=== PATIENT | female | born 1950 | race Caucasian/White ===

== ENCOUNTER 2020-03-23 04:03 | Outpatient (RCR) | payer OTHER, SELFPAY ==
[2020-03-23] MEDS: Normal Saline Flush 10 ML SYR IVP (08:29)
[2020-03-23 08:52] LABS: Abs Immature Grans 0.02 10^3/uL (0.0-0.06); Absolute Basophil Count 0.02 10^3/uL (0.0-0.2); Absolute Eosinophil Count 0.18 10^3/uL (0.0-0.7); Absolute Lymphocyte Count 0.66 10^3/uL (1.2-3.4); Absolute Monocyte Count 0.25 10^3/uL (0.1-0.8); Absolute Neutrophil Count 3.25 10^3/uL (1.2-6.7); Basophils % 0.5; Eosinophils % 4.1; HCT 32.6 % (36.0-46.0); HGB 10.3 g/dL (11.2-15.7); Immature Grans % 0.5; Lymphocytes % 15.1; MCH 26.8 pg (27.0-33.0); MCHC 31.6 % (32.0-36.0); MCV 84.9 fL (80-95); MPV 9.9 fL (8.0-11.0); Monocytes % 5.7; Neutrophils % 74.1; Nucleated RBC 0 %; Platelet Count 251 10^3/uL (130-400); RBC 3.84 10^6/uL (3.93-5.22); RDW 14.1 % (11.7-14.6); RDW-SD 43.8 fL; WBC 4.38 10^3/uL (4.4-10.8)
[2020-03-23 09:16] LABS: Iron 30 ug/dL (50-170); Total Iron Binding Capacity 264 ug/dL (250-450); Transferrin Sat 11 % (15-50)
[2020-03-23 09:32] LABS: ALT 47 U/L (14-59); AST 48 U/L (15-37); Albumin 3.1 g/dL (3.4-5.0); Alkaline Phosphatase 382 U/L (46-116); Anion Gap 8.3 mmol/L (3-11); BUN 9 mg/dL (7-18); Bilirubin, Total 0.3 mg/dL (0.2-1.0); CO2 26.7 mmol/L (21.0-32.0); CREATININE 0.75 mg/dL (0.55-1.02); Calcium 8.9 mg/dL (8.5-10.1); Chloride 105 mmol/L (98-107); Ferritin 85 ng/mL (8-252); Folate 11.5 ng/mL (8.6-20.0); Glucose 98 mg/dL (74-106); Potassium 3.8 mmol/L (3.5-5.1); Sodium 140 mmol/L (136-145); Total Protein 6.9 g/dL (6.4-8.2); Vitamin B12 410 pg/mL (193-986)
== END 2020-03-24 23:59 | disposition home or self-care (01) ==
LOC: INF 04:03
PROVIDERS: PCP Family Medicine; Visit Provider Internal Medicine Hematology & Oncology
DX: C22.1 Intrahepatic bile duct carcinoma (principal); C64.9 Malignant neoplasm of unspecified kidney, except renal pelvis; Z45.2 Encounter for adjustment and management of vascular access device
CPT/HCPCS: 36591; 80053; 82607; 82728; 82746; 83540; 83550; 85025; 86301

== ENCOUNTER 2020-04-20 05:20 | Outpatient (RCR) | payer MEDICARE, OTHER, SELFPAY ==
[2020-03-30] MEDS: Normal Saline Flush 10 ML SYR IVP (08:46)
[2020-03-30 08:50] LABS: Abs Immature Grans 0.01 10^3/uL (0.0-0.06); Absolute Basophil Count 0.02 10^3/uL (0.0-0.2); Absolute Eosinophil Count 0.09 10^3/uL (0.0-0.7); Absolute Lymphocyte Count 0.92 10^3/uL (1.2-3.4); Absolute Monocyte Count 0.37 10^3/uL (0.1-0.8); Absolute Neutrophil Count 3.51 10^3/uL (1.2-6.7); Basophils % 0.4; Eosinophils % 1.8; HCT 30.2 % (36.0-46.0); HGB 9.6 g/dL (11.2-15.7); Immature Grans % 0.2; Lymphocytes % 18.7; MCH 26.4 pg (27.0-33.0); MCHC 31.8 % (32.0-36.0); MCV 83.2 fL (80-95); MPV 10.1 fL (8.0-11.0); Monocytes % 7.5; Neutrophils % 71.4; Nucleated RBC 0 %; Platelet Count 195 10^3/uL (130-400); RBC 3.63 10^6/uL (3.93-5.22); RDW 14.4 % (11.7-14.6); RDW-SD 43.8 fL; WBC 4.92 10^3/uL (4.4-10.8)
[2020-03-30 09:10] LABS: ALT 76 U/L (14-59); AST 64 U/L (15-37); Albumin 2.9 g/dL (3.4-5.0); Alkaline Phosphatase 395 U/L (46-116); Anion Gap 10.4 mmol/L (3-11); BUN 8 mg/dL (7-18); Bilirubin, Total 0.5 mg/dL (0.2-1.0); CO2 24.6 mmol/L (21.0-32.0); CREATININE 0.75 mg/dL (0.55-1.02); Calcium 8.8 mg/dL (8.5-10.1); Chloride 105 mmol/L (98-107); Glucose 91 mg/dL (74-106); Sodium 140 mmol/L (136-145); Total Protein 6.9 g/dL (6.4-8.2)
[2020-04-03 13:19] LABS: CA 19-9 23118 U/mL (<35)
[2020-04-06] MEDS: Normal Saline Flush 10 ML SYR IVP (08:20)
[2020-04-06 08:22] LABS: Abs Immature Grans 0.02 10^3/uL (0.0-0.06); Absolute Basophil Count 0.02 10^3/uL (0.0-0.2); Absolute Eosinophil Count 0.05 10^3/uL (0.0-0.7); Absolute Monocyte Count 0.38 10^3/uL (0.1-0.8); Absolute Neutrophil Count 2.84 10^3/uL (1.2-6.7); Basophils % 0.5; Eosinophils % 1.3; HGB 10.1 g/dL (11.2-15.7); Immature Grans % 0.5; Lymphocytes % 15.3; MCH 26.6 pg (27.0-33.0); MCHC 32.6 % (32.0-36.0); MCV 81.8 fL (80-95); MPV 9.6 fL (8.0-11.0); Monocytes % 9.7; Neutrophils % 72.7; Nucleated RBC 0 %; Platelet Count 154 10^3/uL (130-400); RBC 3.79 10^6/uL (3.93-5.22); RDW 13.8 % (11.7-14.6); RDW-SD 41.1 fL; WBC 3.91 10^3/uL (4.4-10.8)
[2020-04-06 09:04] LABS: ALT 70 U/L (14-59); AST 60 U/L (15-37); Albumin 3.1 g/dL (3.4-5.0); Alkaline Phosphatase 393 U/L (46-116); BUN 12 mg/dL (7-18); Bilirubin, Total 0.4 mg/dL (0.2-1.0); Calcium 8.9 mg/dL (8.5-10.1); Chloride 99 mmol/L (98-107); Glucose 100 mg/dL (74-106); Potassium 4.6 mmol/L (3.5-5.1); Sodium 134 mmol/L (136-145); Total Protein 7.3 g/dL (6.4-8.2); Vitamin B12 525 pg/mL (193-986)
[2020-04-09 06:06] LABS: Vitamin D 25 Total 14.7 ng/ml (30-100)
[2020-04-10 12:09] LABS: CA 19-9 41894 U/mL (<35)
[2020-04-20] MEDS: Normal Saline Flush 10 ML SYR IVP (08:23)
[2020-04-20 08:33] LABS: Abs Immature Grans 0.03 10^3/uL (0.0-0.06); Absolute Basophil Count 0.01 10^3/uL (0.0-0.2); Absolute Eosinophil Count 0.02 10^3/uL (0.0-0.7); Absolute Lymphocyte Count 0.67 10^3/uL (1.2-3.4); Absolute Monocyte Count 0.56 10^3/uL (0.1-0.8); Absolute Neutrophil Count 2.26 10^3/uL (1.2-6.7); Basophils % 0.3; Eosinophils % 0.6; HCT 26.4 % (36.0-46.0); HGB 8.7 g/dL (11.2-15.7); Immature Grans % 0.8; Lymphocytes % 18.9; MCH 26.4 pg (27.0-33.0); MCV 80.2 fL (80-95); MPV 9.1 fL (8.0-11.0); Monocytes % 15.8; Neutrophils % 63.6; Nucleated RBC 0 %; Platelet Count 366 10^3/uL (130-400); RBC 3.29 10^6/uL (3.93-5.22); RDW 14.4 % (11.7-14.6); RDW-SD 41.6 fL; WBC 3.55 10^3/uL (4.4-10.8)
[2020-04-20 08:46] LABS: ALT 24 U/L (14-59); AST 23 U/L (15-37); Albumin 2.6 g/dL (3.4-5.0); Alkaline Phosphatase 297 U/L (46-116); Anion Gap 9.1 mmol/L (3-11); BUN 11 mg/dL (7-18); Bilirubin, Total 0.4 mg/dL (0.2-1.0); CO2 22.9 mmol/L (21.0-32.0); CREATININE 0.99 mg/dL (0.55-1.02); Calcium 8.5 mg/dL (8.5-10.1); Chloride 100 mmol/L (98-107); Estimated GFR 55.95 (mL/min/1.73m2); Glucose 95 mg/dL (74-106); Potassium 4.3 mmol/L (3.5-5.1); Sodium 132 mmol/L (136-145)
[2020-04-20 09:01] LABS: Anisocytosis 1+; Diff Comment Agrees w/ Instrument; Hypochromasia 1+; Microcytosis 1+; Poikilocytes 1+
[2020-04-20 16:14] LABS: Reticulocyte 1.1 % (0.5-2.4)
[2020-04-23 12:02] LABS: CA 19-9 971 U/mL (<35)
== END 2020-04-23 23:59 | disposition home or self-care (01) ==
LOC: INF 05:20
PROVIDERS: PCP Family Medicine; Visit Provider Internal Medicine Hematology & Oncology
DX: C22.1 Intrahepatic bile duct carcinoma (principal); Z45.2 Encounter for adjustment and management of vascular access device; D64.9 Anemia, unspecified
CPT/HCPCS: 36591; 80053; 82306; 82607; 85025; 85045; 86301

== ENCOUNTER 2020-05-21 08:00 | Outpatient (RCR) | payer MEDICARE, OTHER, SELFPAY ==
[2020-04-27] MEDS: Normal Saline Flush 10 ML SYR IVP (09:30)
[2020-04-27 09:37] LABS: Absolute Basophil Count 0.01 10^3/uL (0.0-0.2); Absolute Lymphocyte Count 0.54 10^3/uL (1.2-3.4); Absolute Monocyte Count 0.41 10^3/uL (0.1-0.8); Absolute Neutrophil Count 2.97 10^3/uL (1.2-6.7); Basophils % 0.2; HGB 8.4 g/dL (11.2-15.7); Immature Grans % 2.5; Lymphocytes % 13.4; MCH 26.1 pg (27.0-33.0); MCHC 32.3 % (32.0-36.0); MCV 80.7 fL (80-95); MPV 8.8 fL (8.0-11.0); Monocytes % 10.2; Neutrophils % 73.7; Nucleated RBC 0 %; Platelet Count 239 10^3/uL (130-400); RBC 3.22 10^6/uL (3.93-5.22); RDW 14.5 % (11.7-14.6); RDW-SD 42.5 fL; WBC 4.03 10^3/uL (4.4-10.8)
[2020-04-27 09:44] LABS: Reticulocyte 0.1 % (0.5-2.4)
[2020-04-27 09:59] LABS: ALT 30 U/L (14-59); AST 32 U/L (15-37); Albumin 2.7 g/dL (3.4-5.0); Alkaline Phosphatase 264 U/L (46-116); Anion Gap 8.9 mmol/L (3-11); BUN 16 mg/dL (7-18); Bilirubin, Total 0.4 mg/dL (0.2-1.0); CO2 21.1 mmol/L (21.0-32.0); CREATININE 0.94 mg/dL (0.55-1.02); Calcium 8.4 mg/dL (8.5-10.1); Chloride 100 mmol/L (98-107); Glucose 90 mg/dL (74-106); Potassium 4.1 mmol/L (3.5-5.1); Sodium 130 mmol/L (136-145); Total Protein 6.7 g/dL (6.4-8.2)
[2020-05-11 08:22] LABS: Abs Immature Grans 0.11 10^3/uL (0.0-0.06); Absolute Basophil Count 0.01 10^3/uL (0.0-0.2); Absolute Eosinophil Count 0.04 10^3/uL (0.0-0.7); Absolute Lymphocyte Count 0.81 10^3/uL (1.2-3.4); Absolute Monocyte Count 0.62 10^3/uL (0.1-0.8); Basophils % 0.3; HCT 27.3 % (36.0-46.0); HGB 8.9 g/dL (11.2-15.7); Immature Grans % 2.8; Lymphocytes % 20.5; MCH 26.2 pg (27.0-33.0); MCHC 32.6 % (32.0-36.0); MCV 80.3 fL (80-95); MPV 9.3 fL (8.0-11.0); Monocytes % 15.7; Neutrophils % 59.7; Nucleated RBC 0 %; Platelet Count 310 10^3/uL (130-400); RDW 16.1 % (11.7-14.6); RDW-SD 44.9 fL; WBC 3.96 10^3/uL (4.4-10.8)
[2020-05-11 08:24] LABS: Absolute Neutrophil Count 2.36 10^3/uL (1.2-6.7)
[2020-05-11] MEDS: Normal Saline Flush 10 ML SYR IVP (08:26)
[2020-05-11 08:35] LABS: ALT 23 U/L (14-59); AST 22 U/L (15-37); Albumin 2.8 g/dL (3.4-5.0); Alkaline Phosphatase 248 U/L (46-116); Anion Gap 11.5 mmol/L (3-11); BUN 15 mg/dL (7-18); Bilirubin, Total 0.4 mg/dL (0.2-1.0); CO2 20.5 mmol/L (21.0-32.0); CREATININE 0.98 mg/dL (0.55-1.02); Calcium 8.5 mg/dL (8.5-10.1); Chloride 103 mmol/L (98-107); Estimated GFR 56.61 (mL/min/1.73m2); Glucose 91 mg/dL (74-106); Potassium 3.9 mmol/L (3.5-5.1); Sodium 135 mmol/L (136-145); Total Protein 6.7 g/dL (6.4-8.2)
[2020-05-11 09:32] LABS: Magnesium 1.6 mg/dL (1.8-2.4)
[2020-05-14 15:27] LABS: CA 19-9 60194 U/mL (<35)
[2020-05-21] MEDS: Normal Saline Flush 10 ML SYR IVP (08:16)
[2020-05-21 08:29] LABS: Absolute Basophil Count 0.01 10^3/uL (0.0-0.2); Absolute Eosinophil Count 0.02 10^3/uL (0.0-0.7); Absolute Lymphocyte Count 0.82 10^3/uL (1.2-3.4); Absolute Monocyte Count 0.45 10^3/uL (0.1-0.8); Absolute Neutrophil Count 5.28 10^3/uL (1.2-6.7); Basophils % 0.1; Eosinophils % 0.3; HCT 24.7 % (36.0-46.0); HGB 8.2 g/dL (11.2-15.7); Immature Grans % 2.9; Lymphocytes % 12.1; MCH 26.6 pg (27.0-33.0); MCHC 33.2 % (32.0-36.0); MCV 80.2 fL (80-95); MPV 9.3 fL (8.0-11.0); Monocytes % 6.6; Nucleated RBC 0 %; Platelet Count 118 10^3/uL (130-400); RBC 3.08 10^6/uL (3.93-5.22); RDW 16.8 % (11.7-14.6); RDW-SD 46.8 fL; WBC 6.78 10^3/uL (4.4-10.8)
[2020-05-21 08:46] LABS: ALT 23 U/L (14-59); AST 19 U/L (15-37); Albumin 2.7 g/dL (3.4-5.0); Alkaline Phosphatase 178 U/L (46-116); Anion Gap 10.1 mmol/L (3-11); BUN 15 mg/dL (7-18); Bilirubin, Total 0.4 mg/dL (0.2-1.0); CO2 21.9 mmol/L (21.0-32.0); CREATININE 0.97 mg/dL (0.55-1.02); Calcium 8.1 mg/dL (8.5-10.1); Chloride 103 mmol/L (98-107); Estimated GFR 57.28 (mL/min/1.73m2); Glucose 93 mg/dL (74-106); Magnesium 1.4 mg/dL (1.8-2.4); Potassium 4.1 mmol/L (3.5-5.1); Sodium 135 mmol/L (136-145); Total Protein 6.3 g/dL (6.4-8.2)
== END 2020-05-24 23:59 | disposition home or self-care (01) ==
LOC: INF 08:00
PROVIDERS: PCP Family Medicine; Visit Provider Internal Medicine Hematology & Oncology
DX: C22.1 Intrahepatic bile duct carcinoma (principal); C64.9 Malignant neoplasm of unspecified kidney, except renal pelvis
CPT/HCPCS: 36591; 80053; 86900; 86901; 83735; 85025; 85045; 86301

== ENCOUNTER 2020-06-22 04:19 | Outpatient (RCR) | payer MEDICARE, OTHER, SELFPAY ==
[2020-06-11 07:50] LABS: Abs Immature Grans 0.14 10^3/uL (0.0-0.06); Absolute Basophil Count 0.03 10^3/uL (0.0-0.2); Absolute Eosinophil Count 0.03 10^3/uL (0.0-0.7); Absolute Lymphocyte Count 2.12 10^3/uL (1.2-3.4); Absolute Monocyte Count 0.59 10^3/uL (0.1-0.8); Absolute Neutrophil Count 3.51 10^3/uL (1.2-6.7); Basophils % 0.5; Eosinophils % 0.5; HCT 24.7 % (36.0-46.0); HGB 7.9 g/dL (11.2-15.7); Immature Grans % 2.2; MCH 27.2 pg (27.0-33.0); MCV 85.2 fL (80-95); MPV 8.9 fL (8.0-11.0); Monocytes % 9.2; Neutrophils % 54.6; Nucleated RBC 0 %; RDW 21.5 % (11.7-14.6); RDW-SD 66.2 fL; WBC 6.42 10^3/uL (4.4-10.8)
[2020-06-11 08:01] LABS: ALT 19 U/L (14-59); AST 19 U/L (15-37); Albumin 2.8 g/dL (3.4-5.0); Alkaline Phosphatase 103 U/L (46-116); Anion Gap 8.5 mmol/L (3-11); BUN 17 mg/dL (7-18); Bilirubin, Total 0.4 mg/dL (0.2-1.0); CO2 20.5 mmol/L (21.0-32.0); CREATININE 0.87 mg/dL (0.55-1.02); Calcium 7.8 mg/dL (8.5-10.1); Chloride 108 mmol/L (98-107); Glucose 82 mg/dL (74-106); Magnesium 1.7 mg/dL (1.8-2.4); Potassium 4.2 mmol/L (3.5-5.1); Sodium 137 mmol/L (136-145); Total Protein 6.1 g/dL (6.4-8.2)
[2020-06-11 08:17] LABS: Anisocytosis 3+; Diff Comment RBC Morph Reviewed; Platelet Count 303 10^3/uL (130-400)
[2020-06-11 08:18] LABS: Microcytosis 1+
[2020-06-11] MEDS: Normal Saline Flush 10 ML SYR IVP (08:50)
[2020-06-13 17:35] LABS: CA 19-9 45095 U/mL (<35)
[2020-06-22] MEDS: Normal Saline Flush 10 ML SYR IVP (07:58)
[2020-06-22 08:12] LABS: Abs Immature Grans 0.03 10^3/uL (0.0-0.06); Absolute Basophil Count 0.01 10^3/uL (0.0-0.2); Absolute Eosinophil Count 0.03 10^3/uL (0.0-0.7); Absolute Lymphocyte Count 1.68 10^3/uL (1.2-3.4); Absolute Monocyte Count 0.34 10^3/uL (0.1-0.8); Absolute Neutrophil Count 3.53 10^3/uL (1.2-6.7); Basophils % 0.2; Eosinophils % 0.5; HGB 8.2 g/dL (11.2-15.7); Immature Grans % 0.5; Lymphocytes % 29.9; MCH 27.5 pg (27.0-33.0); MCHC 31.5 % (32.0-36.0); MCV 87.2 fL (80-95); MPV 9.6 fL (8.0-11.0); Neutrophils % 62.9; Nucleated RBC 0 %; RBC 2.98 10^6/uL (3.93-5.22); RDW 20.2 % (11.7-14.6); RDW-SD 62.9 fL; WBC 5.62 10^3/uL (4.4-10.8)
[2020-06-22 08:24] LABS: ALT 21 U/L (14-59); AST 18 U/L (15-37); Albumin 2.9 g/dL (3.4-5.0); Alkaline Phosphatase 87 U/L (46-116); Anion Gap 7.9 mmol/L (3-11); BUN 17 mg/dL (7-18); Bilirubin, Total 0.4 mg/dL (0.2-1.0); CO2 22.1 mmol/L (21.0-32.0); CREATININE 0.9 mg/dL (0.55-1.02); Calcium 8.4 mg/dL (8.5-10.1); Chloride 106 mmol/L (98-107); Glucose 84 mg/dL (74-106); Sodium 136 mmol/L (136-145)
[2020-06-22 08:42] LABS: Anisocytosis 3+; Diff Comment PLT Morph Reviewed; Platelet Count 87 10^3/uL (130-400); Poikilocytes 1+
== END 2020-06-24 23:59 | disposition home or self-care (01) ==
LOC: INF 04:19
PROVIDERS: PCP Family Medicine; Visit Provider Internal Medicine Hematology & Oncology
DX: C22.1 Intrahepatic bile duct carcinoma (principal); Z45.2 Encounter for adjustment and management of vascular access device; D64.9 Anemia, unspecified
CPT/HCPCS: 36591; 80053; 83735; 85025; 86301

== ENCOUNTER 2020-07-13 01:42 | Outpatient (RCR) | payer MEDICARE, OTHER, SELFPAY ==
[2020-07-06 08:56] LABS: Abs Immature Grans 0.04 10^3/uL (0.0-0.06); Absolute Basophil Count 0.01 10^3/uL (0.0-0.2); Absolute Eosinophil Count 0.03 10^3/uL (0.0-0.7); Absolute Lymphocyte Count 1.33 10^3/uL (1.2-3.4); Absolute Monocyte Count 0.37 10^3/uL (0.1-0.8); Absolute Neutrophil Count 2.78 10^3/uL (1.2-6.7); Basophils % 0.2; Eosinophils % 0.7; HCT 23.2 % (36.0-46.0); HGB 7.4 g/dL (11.2-15.7); Immature Grans % 0.9; Lymphocytes % 29.2; MCH 28.8 pg (27.0-33.0); MCHC 31.9 % (32.0-36.0); MCV 90.3 fL (80-95); MPV 9.2 fL (8.0-11.0); Monocytes % 8.1; Neutrophils % 60.9; Nucleated RBC 0 %; Platelet Count 172 10^3/uL (130-400); RBC 2.57 10^6/uL (3.93-5.22); RDW 21.5 % (11.7-14.6); RDW-SD 71.1 fL; WBC 4.56 10^3/uL (4.4-10.8)
[2020-07-06] MEDS: Normal Saline Flush 10 ML SYR IVP (08:57)
[2020-07-06 09:19] LABS: ALT 17 U/L (14-59); AST 18 U/L (15-37); Albumin 2.7 g/dL (3.4-5.0); Alkaline Phosphatase 95 U/L (46-116); Anion Gap 8.8 mmol/L (3-11); BUN 14 mg/dL (7-18); Bilirubin, Total 0.3 mg/dL (0.2-1.0); CO2 20.2 mmol/L (21.0-32.0); CREATININE 0.9 mg/dL (0.55-1.02); Calcium 8.4 mg/dL (8.5-10.1); Chloride 108 mmol/L (98-107); Glucose 78 mg/dL (74-106); Magnesium 1.5 mg/dL (1.8-2.4); Potassium 3.9 mmol/L (3.5-5.1); Sodium 137 mmol/L (136-145); Total Protein 5.9 g/dL (6.4-8.2)
[2020-07-06 09:21] LABS: Anisocytosis 2+; Diff Comment RBC Morph Reviewed; Hypochromasia 1+; Poikilocytes 1+
[2020-07-09 14:21] LABS: CA 19-9 15776 U/mL (<35)
[2020-07-13] MEDS: Normal Saline Flush 10 ML SYR IVP (08:11)
[2020-07-13 08:21] LABS: Abs Immature Grans 0.06 10^3/uL (0.0-0.06); Absolute Basophil Count 0.01 10^3/uL (0.0-0.2); Absolute Eosinophil Count 0.01 10^3/uL (0.0-0.7); Absolute Lymphocyte Count 1.15 10^3/uL (1.2-3.4); Absolute Monocyte Count 0.32 10^3/uL (0.1-0.8); Absolute Neutrophil Count 1.59 10^3/uL (1.2-6.7); Basophils % 0.3; Eosinophils % 0.3; HCT 26.1 % (36.0-46.0); HGB 8.6 g/dL (11.2-15.7); Immature Grans % 1.9; Lymphocytes % 36.6; MCH 28.3 pg (27.0-33.0); MCV 85.9 fL (80-95); MPV 8.7 fL (8.0-11.0); Monocytes % 10.2; Neutrophils % 50.7; Nucleated RBC 0 %; Platelet Count 213 10^3/uL (130-400); RBC 3.04 10^6/uL (3.93-5.22); RDW 20.2 % (11.7-14.6); RDW-SD 62.8 fL; WBC 3.14 10^3/uL (4.4-10.8)
[2020-07-13 08:38] LABS: ALT 20 U/L (14-59); AST 18 U/L (15-37); Albumin 2.7 g/dL (3.4-5.0); Alkaline Phosphatase 111 U/L (46-116); Anion Gap 9.7 mmol/L (3-11); BUN 15 mg/dL (7-18); Bilirubin, Total 0.3 mg/dL (0.2-1.0); CO2 23.3 mmol/L (21.0-32.0); CREATININE 0.8 mg/dL (0.55-1.02); Calcium 8.5 mg/dL (8.5-10.1); Chloride 104 mmol/L (98-107); Glucose 88 mg/dL (74-106); Potassium 3.8 mmol/L (3.5-5.1); Sodium 137 mmol/L (136-145); Total Protein 6.1 g/dL (6.4-8.2)
[2020-07-13 08:45] LABS: Diff Comment RBC Morph Reviewed
[2020-07-13 08:46] LABS: Anisocytosis 2+; Hypochromasia 1+; Poikilocytes 1+
[2020-07-13 10:58] LABS: Magnesium 1.4 mg/dL (1.8-2.4)
== END 2020-07-22 23:59 | disposition home or self-care (01) ==
LOC: INF 01:42
PROVIDERS: Nurse Practitioner Family; PCP Family Medicine; Visit Provider Internal Medicine Hematology & Oncology
DX: C22.1 Intrahepatic bile duct carcinoma (principal); Z45.2 Encounter for adjustment and management of vascular access device
CPT/HCPCS: 36591; 80053; 83735; 85025; 86301

== ENCOUNTER 2020-08-17 04:32 | Outpatient (RCR) | payer MEDICARE, OTHER, SELFPAY ==
[2020-07-27] MEDS: Normal Saline Flush 10 ML SYR IVP (10:40)
[2020-07-27 11:04] LABS: Abs Immature Grans 0.02 10^3/uL (0.0-0.06); Absolute Basophil Count 0.01 10^3/uL (0.0-0.2); Absolute Eosinophil Count 0.02 10^3/uL (0.0-0.7); Absolute Lymphocyte Count 0.94 10^3/uL (1.2-3.4); Absolute Monocyte Count 0.31 10^3/uL (0.1-0.8); Absolute Neutrophil Count 1.96 10^3/uL (1.2-6.7); Basophils % 0.3; Eosinophils % 0.6; HCT 23.1 % (36.0-46.0); HGB 7.5 g/dL (11.2-15.7); Immature Grans % 0.6; Lymphocytes % 28.8; MCH 29.9 pg (27.0-33.0); MCHC 32.5 % (32.0-36.0); MPV 9.9 fL (8.0-11.0); Monocytes % 9.5; Neutrophils % 60.2; Nucleated RBC 0 %; Platelet Count 174 10^3/uL (130-400); RBC 2.51 10^6/uL (3.93-5.22); RDW 20.9 % (11.7-14.6); RDW-SD 68.4 fL; WBC 3.26 10^3/uL (4.4-10.8)
[2020-07-27 11:18] LABS: ALT 23 U/L (14-59); AST 17 U/L (15-37); Albumin 2.8 g/dL (3.4-5.0); Alkaline Phosphatase 81 U/L (46-116); Anion Gap 11.7 mmol/L (3-11); BUN 20 mg/dL (7-18); Bilirubin, Total 0.2 mg/dL (0.2-1.0); CO2 20.3 mmol/L (21.0-32.0); CREATININE 0.8 mg/dL (0.55-1.02); Calcium 8.1 mg/dL (8.5-10.1); Chloride 109 mmol/L (98-107); Ferritin 923 ng/mL (8-252); Glucose 67 mg/dL (74-106); Magnesium 1.5 mg/dL (1.8-2.4); Sodium 141 mmol/L (136-145); Total Protein 5.8 g/dL (6.4-8.2)
[2020-07-27 11:20] LABS: Anisocytosis 3+; Diff Comment Diff Reviewed; Poikilocytes 1+
[2020-07-27 11:34] LABS: Iron 59 ug/dL (50-170); Total Iron Binding Capacity 218 ug/dL (250-450); Transferrin Sat 27 % (15-50)
[2020-08-03] MEDS: Normal Saline Flush 10 ML SYR IVP (10:17)
[2020-08-03 10:23] LABS: Absolute Basophil Count 0.01 10^3/uL (0.0-0.2); Absolute Eosinophil Count 0.01 10^3/uL (0.0-0.7); Absolute Lymphocyte Count 0.65 10^3/uL (1.2-3.4); Absolute Monocyte Count 0.28 10^3/uL (0.1-0.8); Absolute Neutrophil Count 2.08 10^3/uL (1.2-6.7); Basophils % 0.3; Eosinophils % 0.3; HCT 24.4 % (36.0-46.0); HGB 7.9 g/dL (11.2-15.7); Immature Grans % 3.2; Lymphocytes % 20.8; MCH 29.4 pg (27.0-33.0); MCHC 32.4 % (32.0-36.0); MCV 90.7 fL (80-95); MPV 8.6 fL (8.0-11.0); Monocytes % 8.9; Neutrophils % 66.5; Nucleated RBC 0 %; Platelet Count 193 10^3/uL (130-400); RBC 2.69 10^6/uL (3.93-5.22); RDW 19.1 % (11.7-14.6); RDW-SD 62.6 fL; WBC 3.13 10^3/uL (4.4-10.8)
[2020-08-03 10:42] LABS: ALT 34 U/L (14-59); AST 27 U/L (15-37); Albumin 2.7 g/dL (3.4-5.0); Alkaline Phosphatase 129 U/L (46-116); Anion Gap 9.5 mmol/L (3-11); BUN 15 mg/dL (7-18); Bilirubin, Total 0.3 mg/dL (0.2-1.0); CO2 21.5 mmol/L (21.0-32.0); CREATININE 0.9 mg/dL (0.55-1.02); Chloride 105 mmol/L (98-107); Glucose 89 mg/dL (74-106); Sodium 136 mmol/L (136-145); Total Protein 5.8 g/dL (6.4-8.2)
[2020-08-03 10:50] LABS: Anisocytosis 1+
[2020-08-03 12:28] LABS: Magnesium 1.3 mg/dL (1.8-2.4)
[2020-08-17 08:49] LABS: Abs Immature Grans 0.12 10^3/uL (0.0-0.06); Absolute Basophil Count 0.02 10^3/uL (0.0-0.2); Absolute Eosinophil Count 0.05 10^3/uL (0.0-0.7); Absolute Lymphocyte Count 0.67 10^3/uL (1.2-3.4); Absolute Monocyte Count 0.41 10^3/uL (0.1-0.8); Basophils % 0.4; Eosinophils % 1.1; HCT 24.4 % (36.0-46.0); HGB 7.9 g/dL (11.2-15.7); Immature Grans % 2.6; Lymphocytes % 14.7; MCH 29.8 pg (27.0-33.0); MCHC 32.4 % (32.0-36.0); MCV 92.1 fL (80-95); MPV 9.5 fL (8.0-11.0); Neutrophils % 72.2; Nucleated RBC 0 %; Platelet Count 248 10^3/uL (130-400); RBC 2.65 10^6/uL (3.93-5.22); RDW 19.4 % (11.7-14.6); RDW-SD 64.7 fL; WBC 4.57 10^3/uL (4.4-10.8)
[2020-08-17] MEDS: Heparin 500 UNITS/5 ML SYRINGE IV (08:59)
[2020-08-17] MEDS: Normal Saline Flush 10 ML SYR IVP (08:59)
[2020-08-17 09:05] LABS: ALT 27 U/L (14-59); AST 19 U/L (15-37); Albumin 2.8 g/dL (3.4-5.0); Alkaline Phosphatase 137 U/L (46-116); Anion Gap 9.5 mmol/L (3-11); BUN 15 mg/dL (7-18); Bilirubin, Total 0.3 mg/dL (0.2-1.0); CO2 22.5 mmol/L (21.0-32.0); CREATININE 0.9 mg/dL (0.55-1.02); Calcium 8.6 mg/dL (8.5-10.1); Chloride 106 mmol/L (98-107); Glucose 83 mg/dL (74-106); Magnesium 1.6 mg/dL (1.8-2.4); Potassium 4.1 mmol/L (3.5-5.1); Sodium 138 mmol/L (136-145); Total Protein 6.2 g/dL (6.4-8.2)
[2020-08-20 14:06] LABS: CA 19-9 11744 U/mL (<35)
== END 2020-08-22 23:59 | disposition home or self-care (01) ==
LOC: INF 04:32
PROVIDERS: Nurse Practitioner Family; PCP Family Medicine; Visit Provider Internal Medicine Hematology & Oncology
DX: C22.1 Intrahepatic bile duct carcinoma (principal); Z45.2 Encounter for adjustment and management of vascular access device; D64.9 Anemia, unspecified
CPT/HCPCS: 36591; 80053; 82728; 83540; 83550; 83735; 85025; 86301